=== PATIENT | female | born 1960 | race Caucasian/White ===

== ENCOUNTER 2021-01-09 13:45 | Emergency (ER) | payer OTHER, MEDICAID ==
[~2021-01-09] VITALS: Ht 152.4 cm; Wt 49.9 kg
[~2021-01-09 13:45] MED LIST: ACET-9527 PO; DIAZ2TAB6 PO; MORP15TA PO; PHEN100C3 PO; TEMA15CA24 PO
[2021-01-09 13:47] VITALS: BP 130/77
--- NOTE | 2021-01-09 13:56 | NUR ---
PT W/C ASSISTED INTO BED 8.
[2021-01-09] MEDS ORDERED: KETOROLAC 30 MG/ML VIAL IM ONE (14:00)
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
[2021-01-09] MEDS ORDERED: IBUP-2213 PO (14:59)
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
== END 2021-01-09 15:30 | disposition home or self-care (01) ==
LOC: MED 13:45
DX: S16.1XXA Strain of muscle, fascia and tendon at neck level, initial encounter (principal); S80.12XA Contusion of left lower leg, initial encounter; M25.511 Pain in right shoulder; Z86.69 Personal history of other diseases of the nervous system and sense organs; Z98.890 Other specified postprocedural states; Z79.2 Long term (current) use of antibiotics; Z79.899 Other long term (current) drug therapy; Z79.891 Long term (current) use of opiate analgesic; Z88.0 Allergy status to penicillin; Z88.5 Allergy status to narcotic agent; V89.2XXA Person injured in unspecified motor-vehicle accident, traffic, initial encounter; Y93.89 Activity, other specified; Y92.410 Unspecified street and highway as the place of occurrence of the external cause; Y99.8 Other external cause status
CPT/HCPCS: 72040; 73030; 73590; 96372; 99284; J1885

== ENCOUNTER 2023-08-07 06:35 | Emergency (ER) | payer MEDICAID, OTHER ==
[~2023-08-07] VITALS: Ht 152.4 cm; Wt 47.6 kg
[~2023-08-07 06:35] MED LIST changes: +IBUP-2213 PO
[2023-08-07 06:42] VITALS: BP 161/90; PULSE 95; RESP 16; TEMP 97.1; O2SAT 97
[2023-08-07] MEDS ORDERED: LID5T TP (07:25)
[2023-08-07] MEDS ORDERED: IBUP-2213 PO (07:25)
[2023-08-07] MEDS: KETOROLAC 30 MG/ML VIAL IM ONE (07:56)
[2023-08-07] MEDS: LIDOCAINE 5% 1 EA PATCH TP ONE (07:59)
== END 2023-08-07 08:13 | disposition home or self-care (01) ==
LOC: MED 06:35
DX: S39.012A Strain of muscle, fascia and tendon of lower back, initial encounter (principal); R03.0 Elevated blood-pressure reading, without diagnosis of hypertension; Z88.0 Allergy status to penicillin; Z79.899 Other long term (current) drug therapy; W18.09XA Striking against other object with subsequent fall, initial encounter; Y93.89 Activity, other specified; Y92.89 Other specified places as the place of occurrence of the external cause; Y99.8 Other external cause status
CPT/HCPCS: 96372; 99283; J1885